=== PATIENT | male | born 1960 | race Caucasian/White ===

== ENCOUNTER 2016-10-21 12:12 | Emergency (ER) | payer OTHER ==
[~2016-10-21] VITALS: Ht 167.6 cm; Wt 70.3 kg
[~2016-10-21 12:12] MED LIST: NEXIUM40 M1 PO; PRAVASTATIN SOD80 M2 PO
[2016-10-21 12:24] VITALS: BP 160/84
[2016-10-21 13:13] LABS: ABSOLUTE BASOPHIL COUNT 0 /CUMM (0.0-0.2); ABSOLUTE EOSINOPHIL COUNT 0.2 /CUMM (0.0-0.7); ABSOLUTE GRANULOCYTE CT 5.2 /CUMM (1.4-6.5); ABSOLUTE LYMPH COUNT 2.7 /CUMM (1.2-3.4); ABSOLUTE MONOCYTE COUNT 0.5 /CUMM (0.10-0.60); BASOPHIL % 0.5 % (0.0-2.0); EOSINOPHIL % 2.5 % (0-5); GRANULOCYTE % 59.9 % (42.2-75.2); HEMATOCRIT 42.5 % (42-52); MEAN CORPUSCULAR HGB 26.7 PG (27.0-31.0); MEAN CORPUSCULAR HGB CONC 33.3 G/DL (33.0-37.0); MEAN CORPUSCULAR VOLUME 80.1 FL (80.0-94.0); MEAN PLATELET VOLUME 9.3 FL (7.4-10.4); PLATELET COUNT 227 /CUMM (130-400); RBC DISTRIBUTION WIDTH 14.3 % (11.5-14.5); WHITE BLOOD CELL COUNT 8.6 /CUMM (4.8-10.8)
--- NOTE | 2016-10-21 13:39 | ED GI/GU/ABDOMINAL COMPLAINT ---
History of Present Illness General Chief Complaint: General Adult Stated Complaint: RECTAL BLEEDING Source: patient Exam Limitations: no limitations Vital Signs & Intake/Output Vital Signs & Intake/Output Vital Signs Date Time Temp Pulse Resp B/P Pulse O2 O2 Flow FiO2 Ox Delivery Rate 10/21 1224 97.5 88 14 160/84 99 Room Air Allergies Coded Allergies: No Known Allergies (12/21/15) Reconcile Medications Esomeprazole (Nexium) 40 MG CAPSULE. 1 CAP PO DAILY GI (Reported) Pravastatin Sodium 80 MG TABLET 1 TAB PO DAILY CHOLESTEROL (Reported) Triage Note: 55 Y/O MALE C/O "WHEN I GO TO THE BATHROOM, IM BLEEDING". STATES THIS HAS BEEN AN ONGOING ISSUE FOR A YEAR, "BUT IT SEEMS TO BE GETTING WORSE". SENT TO ED BY DR RIVAS. C/O "PRESSURE" BUT DENIES ABDOMINAL PAIN. DENIES N/V. AFEBRILE Triage Nurses Notes Reviewed? yes HPI: 55-year-old male with multiple complaints. He states that she has had intermittent bright blood per rectum while having bowel movements. He has history of hemorrhoids and has been seen by GI had a colonoscopy as well as colorectal surgeon. He was given suppository medication for this. He states that symptoms have improved over the past several months but recently have gotten worse again. He has no rectal pain, no nausea, no vomiting, no black stool. He notes blood in the toilet dripping from his rectal area immediately after having a bowel movement and blood when he wipes which is bright red. He has no leading in his underwear, no black stool no melena. He is not on any blood thinners. He has no abdominal pain. Patient also complains of mild erectile dysfunction that has been going on for many months. He states that sometimes he cannot get an erection. He has been taking [id number] herbal supplements which has helped in the past but are no longer effective. He has no dysuria or scrotal pain or testicular pain or swelling. Patient also complains of intermittent difficulty urinating, states he has a slow stream at times and he has to force the urine out. He has no dysuria, no hematuria. No pain or pressure sensation at this time feeling as though he has to void. (TOÑO MARES,MU) Past History Travel History Traveled to [place] past 21 day No Medical History Any Pertinent Medical History? see below for history Neurological: NONE EENT: NONE Cardiovascular: hyperlipidemia Respiratory: NONE Gastrointestinal: GERD Hepatic: NONE Renal: NONE Musculoskeletal: NONE Psychiatric: NONE Endocrine: NONE Blood Disorders: NONE Cancer(s): NONE [employer]/Reproductive: NONE Surgical History Surgical History: non-contributory Psychosocial History What is your primary language Polish Tobacco Use: Quit >30 days ago Family History Hx Contributory? No (MU TIRADO) Review of Systems Review of Systems Constitutional: Reports: see HPI. EENTM: Reports: no symptoms. Respiratory: Reports: no symptoms. Cardiovascular: Reports: no symptoms. GI: Reports: see HPI. Genitourinary: Reports: see HPI. Musculoskeletal: Reports: no symptoms. Skin: Reports: no symptoms. Neurological/Psychological: Reports: no symptoms. Hematologic/Endocrine: Reports: no symptoms. Immunologic/Allergic: Reports: no symptoms. All Other Systems: Reviewed and Negative (MU TIRADO) Physical Exam Physical Exam Gastrointestinal: normal bowel sounds, soft, non-tender, no organomegaly Comments: Well-developed well-nourished no apparent distress. HEENT: Atraumatic, extraocular motion intact Neck: Supple, no lymphadenopathy Back: Nontender Respiratory: No respiratory distress, clear to auscultation bilateral Heart: Regular rate and rhythm no murmur Rectal exam: Nontender, tiny external hemorrhoid at about the 1 o'clock position , mild internal hemorrhoid noted on exam, nontender. No active bleeding. Stool is brown, heme negative. Prostate is normal shape and size, nontender Extremities: No edema, full range of motion Neuro: Alert and oriented x3 Psych: Mood affect normal, normal memory normal judgment. Skin: Warm and dry, no rash on exposed skin Core Measures ACS in differential dx? No Severe Sepsis Present: No Septic Shock Present: No (MU TIRADO) Progress Differential Diagnosis: AAA, AMI, appendicitis, biliary colic, bowel obstruction , colon cancer, cholecystitis, diverticulitis, epididymitis, esophageal varices, gastritis, hepatitis, hernia, hemorrhoids, ischemic bowel, inflamm bowel dis, [place] tear, orchitis, pancreatitis, prostatitis, peptic ulcer, PUD/GERD, perforated viscous, pyelonephritis, SBO, STD, testicular torsion, ureterolithiasis, urinary retention, urethritis, UTI/pyelo Plan of Care: Orders Procedure Date/time Status COMPREHENSIVE METABOLIC PANEL 10/21 1225 Complete CBC WITHOUT DIFFERENTIAL 10/21 1225 Complete Laboratory Tests 10/21/16 1240: Anion Gap 10, Estimated GFR > 60, BUN/Creatinine Ratio 13.3, Glucose 99, Calcium 9.5, Total Bilirubin 0.5, AST 24, ALT 46, Alkaline Phosphatase 73, Total Protein 6.9, Albumin 4.2, Globulin 2.7, Albumin/Globulin Ratio 1.6, CBC w Diff NO MAN DIFF REQ, RBC 5.30, MCV 80.1, MCH 26.7 L, RDW 14.3, MPV 9.3, Gran % 59.9, Lymphocytes % 31.0, Monocytes % 6.1, Eosinophils % 2.5, Basophils % 0.5, Absolute Granulocytes 5.2, Absolute Lymphocytes 2.7, Absolute Monocytes 0.5, Absolute Eosinophils 0.2, Absolute Basophils 0, PUBS MCHC 33.3 Initial ED EKG: none Comments: Reassurance given to patient, he should continue the suppository medication, obtain stool softeners, avoid straining, he should follow with his colorectal surgeon and urologist referral was given for his erectile dysfunction and possible prostate issues. He does not have any significant urinary retention, I do not feel Flomax is appropriate at this time as patient is still able to void and it would likely affect his erectile dysfunction even further. (MU TIRADO) Departure Departure Disposition: HOME OR SELF CARE Condition: Stable Clinical Impression Primary Impression: Internal bleeding hemorrhoids Referrals: DEISY RIVAS DO (PCP/Family) YOSHI PARADA MD Additional Instructions: Follow-up with your colorectal doctor for continued hemorrhoidal bleeding. Use the fiber supplement once a day, continue using suppositories as needed, did not sit on the toilet for long periods of time, did not strain your self when having a bowel movement. Follow-up with urology (Dr Parada) for your prostate and erectile concerns Departure Forms: Customer Survey General Discharge Information (MU TIRADO) PA/BIOMATERIALS ENGINEER Co-Sign Statement Statement: ED Attending supervision documentation- [] I saw and evaluated the patient. I have also reviewed all the pertinent lab results and diagnostic results. I agree with the findings and the plan of care as documented in the PA's/BIOMATERIALS ENGINEER's documentation. [X] I have reviewed the ED Record and agree with the PA's/BIOMATERIALS ENGINEER's documentation. [] Additions or exceptions (if any) to the PAs/BIOMATERIALS ENGINEER's note and plan are summarized below: [] (TRIP PRECIADO DO)
== END 2016-10-21 14:12 ==
LOC: ERH 12:12
PROVIDERS: Emergency Medicine
DX: K64.8 Other hemorrhoids (principal)

== ENCOUNTER 2017-11-07 13:16 | Emergency (ER) | payer OTHER ==
[~2017-11-07] VITALS: Ht 170.2 cm; Wt 68.0 kg
[2017-11-07 13:55] LABS: ABSOLUTE BASOPHIL COUNT 0 /CUMM (0.0-0.2); ABSOLUTE EOSINOPHIL COUNT 0.2 /CUMM (0.0-0.7); ABSOLUTE GRANULOCYTE CT 5.7 /CUMM (1.4-6.5); ABSOLUTE LYMPH COUNT 2.5 /CUMM (1.2-3.4); ABSOLUTE MONOCYTE COUNT 0.5 /CUMM (0.10-0.60); BASOPHIL % 0.5 % (0.0-2.0); EOSINOPHIL % 2.1 % (0-5); GRANULOCYTE % 63.8 % (42.2-75.2); HEMATOCRIT 41.5 % (42-52); MEAN CORPUSCULAR HGB CONC 33.4 G/DL (33.0-37.0); MEAN CORPUSCULAR VOLUME 80.9 FL (80.0-94.0); MEAN PLATELET VOLUME 8.9 FL (7.4-10.4); PLATELET COUNT 242 /CUMM (130-400); RBC DISTRIBUTION WIDTH 14.1 % (11.5-14.5); RED BLOOD CELL CT 5.13 /CUMM (4.70-6.10)
--- NOTE | 2017-11-07 14:46 | ED GENERAL ADULT ---
History of Present Illness General Chief Complaint: General Adult Stated Complaint: CHEST PRESSURE, TIRED, LIGHTHEADED X FEW DAYS Source: patient Exam Limitations: no limitations Vital Signs & Intake/Output Vital Signs & Intake/Output Vital Signs Date Time Temp Pulse Resp B/P B/P Pulse O2 O2 Flow FiO2 Mean Ox Delivery Rate 11/07 1542 82 18 118/72 100 Room Air 11/07 1334 97.5 78 20 127/85 98 Room Air Allergies Coded Allergies: No Known Allergies (12/21/15) Reconcile Medications Esomeprazole (Nexium) 40 MG CAPSULE.DR 1 CAP PO DAILY GI (Reported) [place]-3 Acid Ethyl Esters 1 GRAM CAPSULE 2 CAP PO BID SUPPLEMENT (Reported) Pravastatin Sodium 80 MG TABLET 1 TAB PO DAILY CHOLESTEROL (Reported) Triage Note: PT C/O FEELING TIRED CHEST TIGHTNESS X 1 WEEK. PT STATES A LITTLE SOB. Triage Nurses Notes Reviewed? yes Onset: Gradual Duration: day(s):, week(s): (7) Timing: multiple episodes today Injury Environment: home Severity: moderate No Modifying Factors: none HPI: 56yo M with PMH of HLD, GERD presents to the ED with complains of generalized fatigue for the past couple of days. The patient states that recently he has been under more stress. He normally smokes medical marijuana before bedtime. He has been having difficulty sleeping. Goes to bed at 9pm but doesn't sleep until 12am. He wakes up in the morning feeling tired and exhausted. He doens't think that his fatigue progresses during the day. He sleeps drowsy during the afternoon. A few days ago while driving he felt like he was gonna pass out and had to ask his to drive. He occasionally has been experiencing a chest pressure/tightness which lasts for a few seconds and goes away on its own. He denies snoring while sleeping. (Chayo BESS,[facility]) Past History Travel History Traveled to [place] past 21 day No Medical History Any Pertinent Medical History? 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 No (Susie Domingo MD) Review of Systems Review of Systems Constitutional: Reports: weakness. Denies: chills, fever. EENTM: Reports: no symptoms. Respiratory: Denies: cough, short of breath. Cardiovascular: Reports: chest pain. GI: Reports: no symptoms. Genitourinary: Reports: no symptoms. Musculoskeletal: Reports: joint pain. Skin: Reports: no symptoms. Neurological/Psychological: Reports: weakness. (Susie Domingo MD) Physical Exam Physical Exam General Appearance: well developed/nourished, no apparent distress, alert, awake , comfortable Head: atraumatic, normal appearance Eyes: Bilateral: normal appearance. Respiratory: normal breath sounds, chest non-tender, lungs clear Cardiovascular: regular rate/rhythm Gastrointestinal: soft, non-tender Extremities: no edema Neurologic/Psych: awake, alert, oriented x 3, normal gait Core Measures ACS in differential dx? No CVA/TIA Diagnosis: No Sepsis Present: No Sepsis Focused Exam Completed? No (Susie Domingo MD) Progress Differential Diagnoses I considered the following diagnoses in my evaluation of the patient: [ hypothyroidism, marijuana use, insomina, vit d deficiency] Plan of Care: Orders Procedure Date/time Status TROPONIN LEVEL 11/07 1335 Complete COMPREHENSIVE METABOLIC PANEL 11/07 1335 Complete CBC WITHOUT DIFFERENTIAL 11/07 1335 Complete EKG 11/07 1317 Active Laboratory Tests 11/07/17 1337: Anion Gap 12, Estimated GFR > 60, BUN/Creatinine Ratio 22.5, Glucose 99, Calcium 9.3, Total Bilirubin 0.4, AST 24, ALT 27, Alkaline Phosphatase 61, Troponin I < 0.01, Total Protein 6.4, Albumin 4.0, Globulin 2.4, Albumin/Globulin Ratio 1.7, CBC w Diff NO MAN DIFF REQ, RBC 5.13, MCV 80.9, MCH 27.0, MCHC 33.4, RDW 14.1, MPV 8.9, Gran % 63.8, Lymphocytes % 27.8, Monocytes % 5.8, Eosinophils % 2.1, Basophils % 0.5, Absolute Granulocytes 5.7, Absolute Lymphocytes 2.5, Absolute Monocytes 0.5, Absolute Eosinophils 0.2, Absolute Basophils 0 Initial ED EKG: NSR (Susie Domingo MD) Departure Departure Time of Disposition: 1533 Disposition: HOME OR SELF CARE Condition: Stable Clinical Impression Primary Impression: Insomnia Qualifiers: Insomnia type: other insomnia Qualified Code: G47.09 - Other insomnia Secondary Impressions: Fatigue Qualifiers: Fatigue type: unspecified Qualified Code: R53.83 - Other fatigue Referrals: Yaneth Marshall MD (PCP/Family) Additional Instructions: Please follow up with your primary care physician within one week of discharge. Please return to the ED for any worsening symptoms or concerns. Departure Forms: Customer Survey General Discharge Information (Susie Domingo MD) Resident Co-Sign Statement Statement: ED Attending supervision documentation- [x] I saw and evaluated the patient. I have also reviewed all the pertinent lab results and diagnostic results. I agree with the findings and the plan of care as documented in the Resident's documentation. [] I have reviewed the ED Record and agree with the Resident's documentation. [] Additions or exceptions (if any) to the Resident's note and plan are summarized below: [] (Adalgisa BESS,[facility]) Critical Care Note Critical Care Note Critical Care Time: non-applicable (Susie Domingo MD)
[2017-11-07] MEDS ORDERED: OMEGA-3 ACID ETH1 GM PO (14:57)
[2017-11-07 15:42] VITALS: BP 118/72
== END 2017-11-07 15:43 ==
LOC: ERH 13:16
PROVIDERS: Emergency Medicine
DX: G47.09 Other insomnia (principal); R53.83 Other fatigue
CPT/HCPCS: 93005; 93010